=== PATIENT | female | born 1990 | race Caucasian/White ===

== ENCOUNTER 2020-12-31 15:26 | Observation (INO) | payer OTHER ==
[2021-02-22 09:11] VITALS: BP 131/72
[2021-02-22] MEDS ORDERED: PREN-217 PO (09:13)
== END 2021-02-22 09:35 | disposition home or self-care (01) ==
LOC: 4S 02-22 08:29
PROVIDERS: ADMIT Obstetrics & Gynecology; ATTEND Obstetrics & Gynecology
DX: Z34.93 Encounter for supervision of normal pregnancy, unspecified, third trimester (principal); Z3A.37 37 weeks gestation of pregnancy
CPT/HCPCS: 99219

== ENCOUNTER 2021-03-02 14:22 | Observation (INO) | payer OTHER ==
[~2021-03-02] VITALS: Ht 162.6 cm; Wt 110.0 kg
[~2021-03-02 14:22] MED LIST: PREN-217 PO
[2021-03-02 15:55] LABS: COVID AG,FIA SOURCE NASOPHARYNGEAL
== END 2021-03-02 14:40 | disposition home or self-care (01) ==
LOC: 4S 14:22
PROVIDERS: ADMIT Obstetrics & Gynecology; ATTEND Obstetrics & Gynecology
DX: Z34.93 Encounter for supervision of normal pregnancy, unspecified, third trimester (principal); Z3A.38 38 weeks gestation of pregnancy; Z20.822 Contact with and (suspected) exposure to COVID-19
CPT/HCPCS: 87426; 99219

== ENCOUNTER 2021-03-02 14:50 | Inpatient (IN) | payer OTHER ==
[~2021-03-02] VITALS: Ht 157.5 cm; Wt 112.0 kg
[2021-03-04] MEDS ORDERED: FentaNYL CITRATE PF 100 MCG/2 ML VIAL IVP PRN (09:00)
[2021-03-04] MEDS ORDERED: RINGERS SOLUTION,LACTATED 1,000 ML IV PRN (09:00)
[2021-03-04] MEDS ORDERED: CITRIC ACID/SODIUM CITRATE 30 ML SOLUTION UDCUP PO PRN (09:00)
[2021-03-04] MEDS ORDERED: METOCLOPRAMIDE HCL 5 MG/ML 2 ML VIAL IVP PRN (09:00)
[2021-03-04 09:39] LABS: BASOPHILS % (AUTO) 0.4 % (0.0-2.0); EOSINOPHILS % (AUTO) 0.5 % (1.0-6.0); HEMATOCRIT 38.3 % (36-46); HEMOGLOBIN 12.4 g/dL (12.0-16.0); LYMPHOCYTES # (AUTO) 1.7 K/uL (1.0-4.8); LYMPHOCYTES % (AUTO) 17.7 % (22.0-44.0); MEAN CORPUSCULAR HEMOGLOBIN 24.7 pg (26.0-34.0); MEAN CORPUSCULAR HGB CONC 32.3 G/dL (31.0-37.0); MEAN CORPUSCULAR VOLUME 77 fL (80-100); MONOCYTES # (AUTO) 0.6 K/uL (0.1-1.0); MONOCYTES % (AUTO) 6.4 % (2.0-9.0); NEUTROPHILS # (AUTO) 7.4 K/uL (1.8-7.7); PLATELET COUNT (AUTO) 296 K/uL (150-450); RED CELL DISTRIBUTION WIDTH 16.1 % (11.5-14.5)
[2021-03-04] MEDS: RINGERS SOLUTION,LACTATED 1,000 ML IV SCH ×2 (10:45→18:14)
[2021-03-04] MEDS ORDERED: MISOPROSTOL 25 MCG TABLET PO ONE (11:00)
[2021-03-04 13:43] VITALS: BP 111/69
[2021-03-04] MEDS ORDERED: MISOPROSTOL 50 MCG TABLET PO ONE (15:15)
[2021-03-04] MEDS ORDERED: OXYGEN THERAPY IH SCH (20:00)
[2021-03-04] MEDS: MISOPROSTOL 50 MCG TABLET PO SCH (20:01)
[2021-03-05] MEDS: MISOPROSTOL 50 MCG TABLET PO SCH ×2 (00:15→04:44)
[2021-03-05] MEDS: RINGERS SOLUTION,LACTATED 1,000 ML IV SCH ×2 (02:00→09:52)
[2021-03-05] MEDS ORDERED: ROPIVACAINE HCL/PF 0.2% 100 ML ED ONE (09:10)
[2021-03-05] MEDS ORDERED: DiphenhydrAMINE HCL 50 MG/ML VIAL IVP PRN (09:45)
[2021-03-05] MEDS ORDERED: ROPIVACAINE HCL/PF 0.2% 100 ML ED PRN (09:45)
[2021-03-05] MEDS ORDERED: ONDANSETRON HCL 4 MG/2 ML VIAL IVP PRN (09:45)
[2021-03-05] MEDS ORDERED: NALBUPHINE HCL 10 MG/ML VIAL IVP PRN (09:45)
[2021-03-05] MEDS ORDERED: OXYTOCIN 30 UNITS/LACT RINGERS 500 ML IV ONE ×2 (12:45→17:15)
[2021-03-05] MEDS ORDERED: LIDOCAINE/PF 1% 30 ML VIAL SQ PRN ×2 (12:45→17:15)
[2021-03-05] MEDS ORDERED: OXYTOCIN 30 UNITS/LACT RINGERS 500 ML IV PRN (12:45)
[2021-03-05] MEDS ORDERED: METHYLERGONOVINE MALEATE 0.2 MG/ML VIAL IM PRN (12:45)
[2021-03-05] MEDS ORDERED: LANOLIN 7 GM OINTMENT TP PRN (17:15)
[2021-03-05] MEDS ORDERED: GLYCERIN/WITCH HAZEL LEAF 40 PADS JAR TP PRN (17:15)
[2021-03-05] MEDS ORDERED: OxyCODONE HCL/ACETAMINOPHEN 5-325 MG TABLET PO PRN ×2 (17:15)
[2021-03-05] MEDS ORDERED: BENZOCAINE 20%/MENTHOL 56 GM SPRAY CANISTER TP PRN (17:15)
[2021-03-05] MEDS: IBUPROFEN 800 MG TABLET PO PRN ×2 (18:17→23:34)
[2021-03-05] MEDS: MAGNESIUM HYDROXIDE SUSPENSION 30 ML UDCUP PO PRN (23:34)
[2021-03-06 06:48] LABS: BASOPHILS % (AUTO) 0.4 % (0.0-2.0); EOSINOPHILS % (AUTO) 0.6 % (1.0-6.0); HEMATOCRIT 34.8 % (36-46); HEMOGLOBIN 10.9 g/dL (12.0-16.0); LYMPHOCYTES % (AUTO) 16.9 % (22.0-44.0); MEAN CORPUSCULAR HEMOGLOBIN 24.3 pg (26.0-34.0); MEAN CORPUSCULAR HGB CONC 31.4 G/dL (31.0-37.0); MEAN CORPUSCULAR VOLUME 77 fL (80-100); MONOCYTES # (AUTO) 0.7 K/uL (0.1-1.0); MONOCYTES % (AUTO) 6.1 % (2.0-9.0); NEUTROPHILS # (AUTO) 8.9 K/uL (1.8-7.7); PLATELET COUNT (AUTO)-OB 280 K/uL (150-450); RED BLOOD CELL COUNT(AUTO) 4.51 MIL/uL (4.00-5.20)
[2021-03-06] MEDS: MAGNESIUM HYDROXIDE SUSPENSION 30 ML UDCUP PO PRN (08:40)
[2021-03-06] MEDS: IBUPROFEN 800 MG TABLET PO PRN (13:50)
[2021-03-06] MEDS ORDERED: IBUP-2071 PO (13:58)
[2021-03-06] MEDS ORDERED: DOCU-275 PO (13:59)
[2021-03-06] MEDS ORDERED: FERR-89 PO (13:59)
== END 2021-03-06 17:10 | disposition home or self-care (01) | DRG 807 ==
LOC: 4S 03-04 08:55 → OBSVTOIN 03-04 08:55
PROVIDERS: ADMIT Obstetrics & Gynecology Obstetrics; ATTEND Obstetrics & Gynecology Obstetrics
PROC: 10E0XZZ Delivery of Products of Conception, External Approach (ICD-10-PCS; principal; 2021-03-05)
PROC: 0HQ9XZZ Repair Perineum Skin, External Approach (ICD-10-PCS; 2021-03-05)
PROC: 10907ZC Drainage of Amniotic Fluid, Therapeutic from Products of Conception, Via Natural or Artificial Opening (ICD-10-PCS; 2021-03-05)
PROC: 3E0R3BZ Introduction of Anesthetic Agent into Spinal Canal, Percutaneous Approach (ICD-10-PCS; 2021-03-05)
PROC: 00HU33Z Insertion of Infusion Device into Spinal Canal, Percutaneous Approach (ICD-10-PCS; 2021-03-05)
DX: O69.81X0 Labor and delivery complicated by cord around neck, without compression, not applicable or unspecified (principal); Z37.0 Single live birth; O70.0 First degree perineal laceration during delivery; Z3A.39 39 weeks gestation of pregnancy
CPT/HCPCS: 85025; 86850; 86900; 86901; 86923; A9575; J2590; J2795; J7120